=== PATIENT | male | born 1975 | race Caucasian/White ===

== ENCOUNTER 2024-01-01 18:51 | Emergency (ER) | payer OTHER, SELFPAY ==
[2024-01-01 18:55] VITALS: BP 118/66
--- NOTE | 2024-01-01 21:29 | ED.GENMED ---
History of Present Illness
General
Chief Complaint: Extremity Pain (non-traumatic)
Source: patient
Exam Limitations: none
Time Seen by Provider: 01/01/24 19:14
Nursing documentation reviewed up to this point in time: agreed with
Travel History
Have you had any contact with someone who has COVID-19?: No
Do you have any symptoms of coronavirus? Fever > 100 degrees, chills, cough, shortness of breath, sore throat, loss of taste or smell, muscle aches, or headache?: No
History of Present Illness
History of Present Illness:
48-year-old male with Jessica history of paroxysmal A-fib currently on metoprolol but not on thinners, hypertension, GERD presenting to the emergency department today with concerns of right leg pain over the past 2 weeks initially was bilateral but
now mainly to the right thigh does have some radiation from the low back as well. Has noticed achiness without obvious swelling to the right lower EXTR no history of blood clots no recent trauma surgery or immobilization. Does not smoke no
estrogen product usage.
Past History
Past History
ED Past Medical History: Arrthythmia (Atrial fibrillation), GERD, HTN, Psychiatric (Anxiety) and Other (ANA)
ED Past Surgical History: Other (Left facial reconstruction, wisdom teeth removal)
Social History
Tobacco: Non-smoker
Alcohol: Occasional
Personal: Single
Living: with family
Employment: Employed
Family History
Family History: Other (He says his dad had prediabetes)
Review of Systems
Review of Systems
Allergies reviewed?: Yes
All Other Systems: ROS reviewed and negative except as documented in HPI and ROS
Phy Exam
Physical Exam
Physical Exam:
GENERAL: Alert , in no apparent distress
EYE: pupils equal and reactive
NECK: Supple, no significant adenopathy.
ENT: o/p clr, mmm.
CARDIAC: Regular rate and rhythm .
LUNGS: Clear breath sounds bilaterally, no acute respiratory distress, no wheezes/rales/rhonchi
ABDOMEN: Soft, without focal tenderness, no r/g, no cvat
NEUROLOGICAL: Alert and oriented, no focal neuro deficits
SKIN: Warm and dry, skin intact.
MUSCULOSKELETAL: Some mild tenderness to the right lateral thigh no overlying skin changes. No edema, well perfused.
PSYCH: Normal and appropriate interaction.
Course
Orders/Labs/Results
Orders:
Orders
01/01/24 19:22
Venous Doppler Lwr Ext Rt [US Perip Venous LOWER Ext RT] Urgent
Comment:
Reason For Exam: right leg pain
Vital Signs
Initial and Last Documented VS:
Initial Vital Signs
Temp Pulse Resp BP Pulse Ox
98.3 F 86 20 118/66 98
01/01/24 18:55 01/01/24 18:55 01/01/24 18:55 01/01/24 18:55 01/01/24 18:55
Last Documented Vital Signs
Temp Pulse Resp BP Pulse Ox
98.3 F 86 20 118/66 98
01/01/24 18:55 01/01/24 18:55 01/01/24 18:55 01/01/24 18:55 01/01/24 18:55
MDM/Problems Addressed
MDM/Problems Addressed:
48-year-old male presenting to the emergency department today with concerns of right thigh achiness initially started as diffuse lower extremity discomfort after starting to hike regularly after a few months of very minimal physical activity. Vital
signs are normal no risk factors specifically for clot no obvious swelling but does describe achiness to the thigh. Concerning this ultrasound was performed to rule out DVT. This was negative. Potentially with a strain to the leg due to increased
physical activity. Plan for symptomatic treatment. Otherwise stable for outpatient management return precautions given.
*Critical Care Note
Total Time (30-74mins, 75-104mins- exclusive of procedures): Not Applicable
ED Attending Note
-
Portions of this chart may have been created with voice recognition software.� Occasional wrong word or��sound alike� substitutions may have occurred due to the inherent limitations of voice recognition software.
Discharge Plan
Departure
Patient Disposition: Home (Routine Discharge)
Date of Disposition: 01/01/24
Time of Disposition: 21:39
Patient with high blood pressure during this ER visit?: No
Condition: Good
Covid-19: Not Applicable
Discharge Problem:
Leg pain, right
Instructions: Muscle and Bone Pain (DC)
Prescriptions:
No Action
Benicar Hct 40-12.5 Mg Tablet
1 tab PO DAILY
fexofenadine [Jeanette] 30 MG tablet
30 mg PO PRN PRN (Reason: allergies)
metoprolol tartrate 25 MG tablet
25 mg PO Daily Qty: 30 0RF
Referrals:
Luís Huitron, [Family Provider] -
Activity Restrictions/Additional Instructions:
You came to the emergency department today with concerns of right-sided leg discomfort. Here you an ultrasound without signs of clot. Otherwise this is likely soft tissue injury. Please stretch and gait and light exercise as well as take Motrin
over the next few days to help with symptoms. Return to the emergency department for any worsening, new or concerning symptoms.
Interventions
Interventions:
*Risk Screen - Suicide Last Done: 01/01/24 18:55
*General Assessment Last Done: 01/01/24 19:35
*Neglect/Abuse Screening Last Done: 01/01/24 18:55
*ED COVID-19 Vaccine History Last Done: 01/01/24 19:35
ED-Musculoskeletal Assessment Last Done: 01/01/24 19:55
[2024-01-01 21:41] VITALS: BP 117/76
[2024-01-01] MEDS: MOTRIN 600 MG PO (21:46)
== END 2024-01-01 21:50 | disposition home or self-care (01) ==
LOC: EMR 18:51
PROVIDERS: EMERGENCY PHYSICIAN Emergency Medicine; FAMILY PHYSICIAN Family Medicine
DX: M79.604 Pain in right leg (principal); I48.0 Paroxysmal atrial fibrillation; I10 Essential (primary) hypertension; K21.9 Gastro-esophageal reflux disease without esophagitis
CPT/HCPCS: 99284; 93971

== ENCOUNTER 2024-12-09 06:26 | Day surgery (SDC) | payer OTHER, SELFPAY | END 2024-12-09 10:06 | disposition home or self-care (01) | LOC: GI 06:26 | PROVIDERS: ATTENDING PHYSICIAN Internal Medicine; FAMILY PHYSICIAN Family Medicine | DX: Z12.11 Encounter for screening for malignant neoplasm of colon (principal); K57.30 Diverticulosis of large intestine without perforation or abscess without bleeding; K64.8 Other hemorrhoids; D12.0 Benign neoplasm of cecum; D12.5 Benign neoplasm of sigmoid colon | CPT/HCPCS: 45385; 88305 ==

== ENCOUNTER 2025-01-15 15:48 | Emergency (ER) | payer OTHER, SELFPAY ==
[2025-01-15 15:58] VITALS: BP 153/84
[2025-01-15 16:21] LABS: % Basophils 0.7 % (0-2); % Eosinophils 1.2 % (0-6); % Immature Granulocytes 0.2 % (0-0.5); % Lymphocytes 28.3 % (20.5-51.1); % Neutrophils 57.6 % (42.2-75.2); Absolute Eosinophils 0.1 10^3/uL (0-0.7); Absolute Lymphocytes 1.7 10^3/uL (1.2-3.4); Absolute Monocytes 0.7 10^3/uL (0.1-0.6); Absolute Neutrophils 3.4 10^3/uL (1.4-6.5); Hematocrit 39.9 % (39.0-52.0); Hemoglobin 14.4 g/dL (13.0-18.0); Mean Corp Hgb Conc. 36.1 g/dL (33.0-37.0); Mean Corpuscular Hgb 31.1 pg (27.0-31.0); Mean Corpuscular Volume 86.2 fL (80.0-94.0); Mean Platelet Volume 8.8 fL (7.4-10.4); Nucleated Red Blood Cells % 0 % (-); Platelet Count 214 10^3/uL (130-400); Red Blood Cell Count 4.63 10^6/uL (4.70-6.10); White Blood Cell Count 5.8 10^3/uL (4.8-10.8)
[2025-01-15 16:39] LABS: ALT (SGPT) 35 U/L (0-50); AST (SGOT) 34 U/L (17-59); Albumin 4.4 g/dl (3.5-5.0); Alkaline Phosphatase 88 U/L (38-126); Blood Urea Nitrogen 15 mg/dl (9-20); Calcium 8.9 mg/dl (8.4-10.2); Carbon Dioxide 27 mmol/L (22-30); Chloride 107 mmol/L (98-107); Glucose 110 mg/dl (70-99); Potassium 4.2 mmol/L (3.5-5.1); Sodium 140 mmol/L (135-145); Total Bilirubin 0.6 mg/dl (0.2-1.3); Total Protein 7.3 g/dl (6.3-8.2); eGFR > 60.00
[2025-01-15 16:42] LABS: Troponin I < 0.012 ng/ml
--- NOTE | 2025-01-15 17:59 | ED.GENMED ---
History of Present Illness
General
Chief Complaint: Abdominal Symptoms
Source: patient
Exam Limitations: none
Time Seen by Provider: 01/15/25 17:57
History of Present Illness
History of Present Illness:
49yoM with a history of atrial fibrillation, hypertension, and obesity presenting for evaluation of nausea. Patient ate ham and carrots from a local restaurant yesterday for dinner. He started to become nauseous after this. He went to the movies
and upon returning home, he had to run to the bathroom and had an episode of diarrhea. He had abdominal discomfort and gurgling throughout the night. He also felt feverish but did not check his temperature. He develops a throbbing pain in his
left arm last night which persisted when he woke up this morning. He decided to make sure everything was okay and come to the ED. He has not had any further diarrhea today. He denies any chest pain or shortness of breath. No sick contacts or
recent travel.
Past History
Past History
ED Past Medical History: Arrthythmia (Atrial fibrillation), GERD, HTN, Psychiatric (Anxiety) and Other (ANA)
ED Past Surgical History: Other (Left facial reconstruction, wisdom teeth removal)
Social History
Tobacco: Non-smoker
Alcohol: Occasional
Personal: Single
Living: with family
Employment: Employed
Family History
Family History: Other (He says his dad had prediabetes)
Phy Exam
General Physical Exam
General Presentation: well appearing and no apparent distress
General age: appears stated age
General Skin: warm and dry
General Habitus: normal
General Mental: alert
ENT Exam
ENT Exam: normocephalic
Cardiovascular Exam
Cardiovascular Exam: regular rate/rhythm and normal peripheral pulses (2+ radial pulses bilaterally)
Pulmonary Exam
Pulmonary Exam: lungs clear, no respiratory distress, no rales, no crackles, no rhonchi and no wheezing
Gastrointestinal Exam
Gastrointestinal Exam: soft, non distended and other (+Mild tenderness in RUQ. Abdomen soft, non-distended. No rebound or guarding. Negative Rockwell's sign.)
Neurological Exam
Neurological Exam: alert
[place] Coma Scale
Eye Opening: Spontaneous
Verbal Response: Oriented
Motor Response: Obeys Commands
GCS Total Score: 15
Musculoskeletal Exam
Musculoskeletal Exam: other (L arm is normal to inspection without skin changes or swelling. 2+ radial pulse. )
Skin Exam
Skin Exam: normal color and warm/dry
Psychiatric Exam
Psychiatric Exam: normal mood/affect
Course
Orders/Labs/Results
Orders:
Orders
01/15/25 15:48
EKG [Electrocardiogram (*1)] Urgent
Reason for Study: Chest Pain
01/15/25 15:49
EKG- Treatment ONCE
01/15/25 16:13
Complete Blood Count/With Diff Urgent
Comprehensive Metabolic Panel Urgent
Troponin I Urgent
01/15/25 18:10
US Abdomen Complete/Upper Urgent
Comment:
Reason For Exam: RUQ pain
01/15/25 18:17
COVID-19 Antigen Urgent
Source: Nasal Swab
Influenza A+B Rapid Molecular Urgent
[facility] Source: Nasal Swab
Specimen Description:
Abnormal Lab Results
01/15/25
16:13
RBC 4.63 L 10^6/uL
(4.70-6.10)
MCH 31.1 H pg
(27.0-31.0)
Absolute Monos (auto) 0.7 H 10^3/uL
(0.1-0.6)
Monocytes % 12.0 H %
(1.7-9.3)
Glucose 110 H mg/dl
(70-99)
01/15/25 16:13
01/15/25 16:13
Vital Signs
Initial and Last Documented VS:
Initial Vital Signs
Temp Pulse Resp BP Pulse Ox
98.5 F 90 16 153/84 97
01/15/25 15:58 01/15/25 15:58 01/15/25 15:58 01/15/25 15:58 01/15/25 15:58
Last Documented Vital Signs
Temp Pulse Resp BP Pulse Ox
98.5 F 96 16 109/57 99
01/15/25 15:58 01/15/25 21:25 01/15/25 21:25 01/15/25 21:25 01/15/25 21:25
MDM/Problems Addressed
Differential Diagnosis Includes:
49yoM here with multiple complaints. Had nausea and diarrhea last night. Started after eating takeout. Gurgling in his abdomen throughout the night. Also c/o throbbing L arm pain. No CP/SOB. Vital signs stable. He is well-appearing in no acute
distress. There is mild right upper quadrant tenderness on exam. Remainder of abdomen is nontender. Differential diagnosis includes but is not limited to: Food poisoning, gastroenteritis, biliary colic, less likely ACS
Initial ED plan: Cardiac labs and EKG obtained in triage. EKG shows normal sinus rhythm without ischemic changes and troponin within normal limits. Remainder of labs unremarkable. Will check COVID/flu swab and upper abdominal ultrasound.
*EKG
Interpreted by ED Provider?: Yes
EKG Intrepretation Date: 01/15/25
Heart Rate: 83
Rate: normal
Rhythm: sinus
[place]: normal axis
Interval: normal interval
QRS Pattern: normal QRS
Ischemia: no ischemia
*Critical Care Note
Total Time (30-74mins, 75-104mins- exclusive of procedures): Not Applicable
Update Note
Update Note:
Viral testing negative. Ultrasound shows findings suggesting fatty liver. Ultrasound otherwise unremarkable including no evidence of cholelithiasis. Patient feeling improved on reassessment. No indication for hospitalization. Suspect food
poisoning and supportive care discussed. Advised follow-up with PCP and ED precautions reviewed. Patient in agreement with plan and was discharged in stable condition.
ED Attending Note
-
Portions of this chart may have been created with voice recognition software.� Occasional wrong word or��sound alike� substitutions may have occurred due to the inherent limitations of voice recognition software.
Discharge Plan
Departure
Patient Disposition: Home (Routine Discharge)
Date of Disposition: 01/15/25
Time of Disposition: 21:00
Patient with high blood pressure during this ER visit?: No
Discharge Problem:
Left arm pain, Diarrhea, Malaise
Instructions: Diarrhea in teens and adults
Prescriptions:
No Action
Benicar Hct 40-12.5 Mg Tablet
1 tab PO DAILY
fexofenadine [Jeanette] 30 MG tablet
30 mg PO PRN PRN (Reason: allergies)
metoprolol tartrate 25 MG tablet
25 mg PO Daily Qty: 30 0RF
Referrals:
Luís Huitron, [Family Provider] -
Activity Restrictions/Additional Instructions:
Drink plenty of fluids and eat a bland diet (bananas, rice, applesauce, toast).
Please follow-up with your family doctor. Return to the ER with any new or worsening symptoms.
Interventions
Interventions:
*Risk Screen - Suicide Last Done: 01/15/25 16:00
*General Assessment Last Done: 01/15/25 18:27
*Neglect/Abuse Screening Last Done: 01/15/25 16:00
*ED- Fall Risk Assessment Last Done: 01/15/25 18:27
*ED COVID-19 Vaccine History Last Done: 01/15/25 18:27
*Nursing Disposition Last Done: 01/15/25 21:25
ED- Pulmonary Assessment Last Done: 01/15/25 18:27
ED- Cardiac Assessment Last Done: 01/15/25 18:27
KN-Fnapen-Skyhmvsyjw Assessment Last Done: 01/15/25 18:27
Discharge Date and Time
Discharge Date/Time: 01/15/25 21:25
Print Language: [email or web address]
[2025-01-15 18:16] VITALS: BP 120/58
[2025-01-15 18:39] LABS: COVID-19 Antigen Negative (Negative)
[2025-01-15 20:45] VITALS: BP 109/56
[2025-01-15 21:25] VITALS: BP 109/57
== END 2025-01-15 21:25 | disposition home or self-care (01) ==
LOC: EMR 15:48
PROVIDERS: Physician Assistant; Student in an Organized Health Care Education/Training Program; EMERGENCY PHYSICIAN Emergency Medicine; FAMILY PHYSICIAN Family Medicine
DX: M79.602 Pain in left arm (principal); R53.81 Other malaise; I48.91 Unspecified atrial fibrillation; I10 Essential (primary) hypertension; E66.9 Obesity, unspecified; G47.33 Obstructive sleep apnea (adult) (pediatric)
CPT/HCPCS: 99284; 76700; 80053; 84484; 85025; 87502; 87811; 93005